=== PATIENT | female | born 1955 | race Caucasian/White ===

== ENCOUNTER 2017-04-12 13:35 | Emergency (ER) | payer OTHER ==
[~2017-04-12] VITALS: Ht 154.9 cm; Wt 76.2 kg
[2017-04-12 13:39] VITALS: BP 145/83
--- NOTE | 2017-04-12 15:04 | ED ANIMAL BITE/WOUND CHECK ---
History of Present Illness General Chief Complaint: Laceration Procedure Stated Complaint: LAC TO THUMB Source: patient Exam Limitations: no limitations Vital Signs & Intake/Output Vital Signs & Intake/Output Vital Signs Date Time Temp Pulse Resp B/P B/P Pulse O2 O2 Flow FiO2 Mean Ox Delivery Rate 04/12 1339 98.9 91 20 145/83 96 Room Air Allergies Coded Allergies: No Known Allergies (08/11/16) Reconcile Medications Losartan Potassium 50 MG TABLET 1 TAB PO DAILY HEART (Reported) Methimazole 5 MG TABLET 1 TAB PO DAILY AC THYROID (Reported) Perphenazine 8 MG TABLET 1 TAB PO BID MENTAL HEALTH (Reported) Triage Note: PT TO ED C/O LAC TO RIGHT HAND THUMB FROM DOG FOOD CAN. LAST TETANUS A FEW MONTHS AGO. Triage Nurses Notes Reviewed? yes HPI: Ms. Landin is a 61 yo f w/ PMH of anxiety, depression and HTN present into the emergency department for laceration. Patient states she was opening a can of dog food when she sustained a cut to her right thumb. Patient states that her tetanus shot was updated several months ago. She was able to have the wound stopped bleeding by applying direct pressure. No signs of infection. Patient is able to move the finger distal to the injury. No fevers or chills. No chest pain, nausea, vomiting or diarrhea. (COSME TATE MD) Past History Travel History Traveled to [place] past 21 day No Medical History Any Pertinent Medical History? see below for history Neurological: NONE EENT: NONE Cardiovascular: hypertension Respiratory: NONE Gastrointestinal: NONE Hepatic: NONE Renal: NONE Musculoskeletal: NONE Psychiatric: anxiety, depression Endocrine: NONE Blood Disorders: NONE LEAVE MANAGER/Reproductive: NONE Tetanus Vaccine: 08/11/16 Surgical History Surgical History: non-contributory Psychosocial History What is your primary language Korean Tobacco Use: Quit >30 days ago ETOH Use: denies use Illicit Drug Use: denies illicit drug use Family History Hx Contributory? No (COSME TATE MD) Review of Systems Review of Systems Constitutional: Reports: no symptoms. EENTM: Reports: no symptoms. Respiratory: Reports: no symptoms. Cardiovascular: Reports: no symptoms. GI: Reports: no symptoms. Genitourinary: Reports: no symptoms. Musculoskeletal: Reports: no symptoms. Neurological/Psychological: Reports: no symptoms. Hematologic/Endocrine: Reports: no symptoms. Immunologic/Allergic: Reports: no symptoms. All Other Systems: Reviewed and Negative (COSME TATE MD) Physical Exam Physical Exam General Appearance: well developed/nourished, mild distress Head: atraumatic Eyes: Bilateral: PERRL, EOMI. Ears, Nose, Throat: normal pharynx, normal ENT inspection, hearing grossly normal Neck: normal inspection, supple Respiratory: normal breath sounds Cardiovascular: regular rate/rhythm Gastrointestinal: soft, non-tender Back: normal inspection Extremities: normal range of motion Neurologic/Psych: awake, alert, oriented x 3, normal mood/affect Skin: 1.5 linear laceration to R thumb Lymphatic: no anterior cervical tiffanie (COSME TATE MD) Progress Differential Diagnosis: abscess, joint infection, tenosysnovitis, laceration foreign body Plan of Care: She is otherwise well-appearing. Sustained laceration while opening can of dog food. Tetanus shot was received several months ago and is up-to-date. Wound was repaired with 2 interrupted sutures. Patient tolerated procedure well without issues. We'll discharge home with instructions for follow-up to have the features removed in 5-7 days. Patient given return precautions. A clean sterile dressing was applied with bacitracin. Patient given several additional packets of bacitracin prior to discharge. (COSME TATE MD) Departure Departure Time of Disposition: 1540 Disposition: HOME OR SELF CARE Condition: Stable Clinical Impression Primary Impression: Laceration of right thumb Qualifiers: Encounter type: initial encounter Qualified Code: S61.011A - Laceration without foreign body of right thumb without damage to nail, initial encounter Referrals: RODRIGO VENTURA DO (PCP/Family) Additional Instructions: You was seen in the emergency department today for a right thumb laceration. Your tetanus is up-to-date. You only need this every 10 years. Please have the sutures removed in 5-7 days. You can need your primary care doctor's office or return here to the emergency department to have them removed. You had 2 stitches placed today. If you see signs of infection such as redness, swelling, pus or worsening pain, please return to the emergency department for immediate evaluation as finger infections can become quite severe. You can use Tylenol or Motrin for the pain. Change the dressing every evening. You can use bacitracin before. Departure Forms: Customer Survey General Discharge Information (COSME TATE MD) Resident Co-Sign Statement Statement: ED Attending supervision documentation- [X] I saw and evaluated the patient. I have also reviewed all the pertinent lab results and diagnostic results. I agree with the findings and the plan of care as documented in the Resident's documentation. [X] I have reviewed the ED Record and agree with the Resident's documentation. [] Additions or exceptions (if any) to the Resident's note and plan are summarized below: [] (DELMI HUNG,FLAQUITA Carvajal) Procedures Laceration/Wound Repair Laceration/Wound Repair: Wound Location: upper extremity (R thumb) Wound's Depth, Shape: linear Wound Length (cm): 1.5 Wound Explored: clean, no foreign body removed Irrigated w/ Saline (ccs): 450 Betadine Prep? Yes Anesthesia: 1% lidocaine Volume Anesthetic (ccs): 6 Wound Debrided: minimal Wound Repaired With: sutures Suture Size/Type: 5:0, proline Number of Sutures: 2 Layer Closure? No Sterile Dressing Applied: Yes Splint Applied? No Tetanus Status: up to date (LEA HUNG,COSME)
[2017-04-12] MEDS ORDERED: PERPHENAZINE8 M1 PO (15:12)
[2017-04-12] MEDS ORDERED: METHIMAZOLE5 M1 PO (15:13)
[2017-04-12] MEDS ORDERED: LOSARTAN POTASS50 M1 PO (15:13)
== END 2017-04-12 16:10 ==
LOC: ERH 13:35
DX: S61.011A Laceration without foreign body of right thumb without damage to nail, initial encounter (principal); W26.8XXA Contact with other sharp object(s), not elsewhere classified, initial encounter; Y93.89 Activity, other specified; Y92.9 Unspecified place or not applicable